=== PATIENT | female | born 1990 | race Caucasian/White ===

== ENCOUNTER 2017-02-20 04:41 | Inpatient (IN) | payer OTHER ==
[~2017-02-20] VITALS: Ht 165.1 cm; Wt 79.0 kg
[2017-02-20] VITALS (46 sets, daily range): BP systolic 75–192; BP diastolic 44–136
[2017-02-20] MEDS ORDERED: LACTATED RINGER'S 1000 ML IV STA (05:30)
[2017-02-20] MEDS ORDERED: PENICILLIN G POTASSIUM IV 5 MU in D5W MINI-BAG PLUS 100 ML IV STA (05:30)
[2017-02-20] MEDS ORDERED: FENTANYL 2MCG/ML ROPIVACAINE 0.2% IN 0.9% NACL 200ML IVBAG As Ordered ONE (05:51)
[2017-02-20 05:52] LABS: MEAN CORPUSCULAR HEMOGLOBIN 30.4 pg (27.0-33.0); MEAN CORPUSCULAR HGB CONC 33.6 g/dl (32.0-36.5); MEAN CORPUSCULAR VOLUME 90.4 fl (80.0-96.0); PLATELET COUNT, AUTOMATED 255 10^3/uL (150-450); RED CELL DISTRIBUTION WIDTH 12.2 % (11.5-14.5); WHITE BLOOD COUNT 8.8 10^3/uL (4.0-10.0)
[2017-02-20] MEDS ORDERED: RANI15TA PO (06:46)
[2017-02-20] MEDS ORDERED: BIOT50004 PO (06:48)
[2017-02-20] MEDS ORDERED: PRENTAB16 PO (06:49)
[2017-02-20] MEDS ORDERED: REFRIGERATOR IV KEYS XX PRN (07:00)
[2017-02-20] MEDS ORDERED: ONDANSETRON 4MG/2ML VIAL (J2405) IV PRN (07:00)
[2017-02-20] MEDS ORDERED: ePHEDrine SULFATE 25 MG/5 ML(5MG/ML) SYRINGE IV PRN (07:00)
[2017-02-20] MEDS ORDERED: NALOXONE INJ 0.4 MG/1 ML VIAL (J2310) IV PRN (07:00)
[2017-02-20] MEDS ORDERED: LACTATED RINGER'S 1000 ML IV PRN (07:00)
[2017-02-20] MEDS ORDERED: EPIDURAL COMMENT XX SCH (07:00)
[2017-02-20] MEDS ORDERED: EPIDURAL/PCA KEYS XX PRN (07:00)
[2017-02-20] MEDS: FENTANYL/ROPIVACAINE/NACL BAG 200 ML EPIDURAL SCH (07:00)
[2017-02-20] MEDS ORDERED: diphenhydrAMINE INJ 50MG/ML VIAL (J1200) IV PRN (07:00)
[2017-02-20] MEDS: PENICILLIN G POTASSIUM IV 2.5 MU in D5W 100 ML IV SCH ×4 (10:07→23:02)
[2017-02-20] MEDS ORDERED: OXYTOCIN DRIP 30 UNITS in APPROPRIATE DILUENT 1 EA IV SCH (11:30)
[2017-02-20] MEDS ORDERED: LACTATED RINGER'S 1000 ML IV ONE ×2 (12:00→18:15)
[2017-02-20] MEDS ORDERED: FAMOTIDINE INJ 20MG/2ML VIAL (S0028) IVP ONE (12:00)
[2017-02-20] MEDS: LR 1,000 ML IV SCH ×2 (12:06→16:03)
--- NOTE | 2017-02-20 19:53 | IPNPDOC ---
Text Note Date of Service The patient was seen on 02/20/17. NOTE I assumed care as primary provider at 1930. Lucero is a 26yo with SIUP at 41wk who presented in active labor this morning. She has progressed from 4cm on admission to 7cm on most recent check at 1830. She is starting to have more pain in her back, anesthesia aware and will re- bolus epidural. Vitals wnl Cat I FHRT currently Continue to titrate pitocin per protocol as FHRT allows Plan to recheck in 1hr or as indicated Safe to proceed Dr. Jessica Bacon ([facility])MD VS,Mynor, I+O VS, Mynor I+O Laboratory Tests 02/20/17 05:39 Red Blood Count 4.28, Mean Corpuscular Volume 90.4, Mean Corpuscular Hemoglobin 30.4, Mean Corpuscular Hemoglobin Concent 33.6, Red Cell Distribution Width 12.2 Vital Signs Date Time Temp Pulse Resp B/P (MAP) Pulse Ox O2 Delivery O2 Flow Rate FiO2 02/20/17 19:00 93 118/82 (94) 02/20/17 16:56 99.0 18 I&O- Last 24 Hours up to 6 AM 02/21/17 06:00 Intake Total 3282.5 ml Output Total 2375 ml Balance 907.5 ml JESSICA BACON MD Feb 20, 2017 19:53
--- NOTE | 2017-02-20 20:38 | IPNPDOC ---
Text Note Date of Service The patient was seen on 02/20/17. NOTE Pt now more comfortable after recent epidural bolus. Vitals wnl, afebrile Cat I FHRT currently with ctx q2-3min My first SCE: /-1 IUPC placed, amniotic fluid still clear Continue to titrate pitocin per protocol as FHRT allows Plan to recheck in 2-4hr or as indicated Use of "peanut ball" with frequent repositioning of pt Safe to proceed Dr. Jessica Bacon ([facility]), VS,Mynor, I+O VSMynor I+O Laboratory Tests 02/20/17 05:39 Red Blood Count 4.28, Mean Corpuscular Volume 90.4, Mean Corpuscular Hemoglobin 30.4, Mean Corpuscular Hemoglobin Concent 33.6, Red Cell Distribution Width 12.2 Vital Signs Date Time Temp Pulse Resp B/P (MAP) Pulse Ox O2 Delivery O2 Flow Rate FiO2 02/20/17 19:00 93 118/82 (94) 02/20/17 16:56 99.0 18 I&O- Last 24 Hours up to 6 AM 02/21/17 06:00 Intake Total 3282.5 ml Output Total 2375 ml Balance 907.5 ml JESSICA BACON MD Feb 20, 2017 20:38
[2017-02-21] MEDS: PENICILLIN G POTASSIUM IV 2.5 MU in D5W 100 ML IV SCH (02:00)
[2017-02-21] MEDS: FENTANYL/ROPIVACAINE/NACL BAG 200 ML EPIDURAL SCH (03:00)
[2017-02-21] MEDS ORDERED: OXYTOCIN DRIP 30 UNITS in APPROPRIATE DILUENT 1 EA IV SCH (03:15)
[2017-02-21] MEDS ORDERED: LIDOCAINE 1% MDV INJ 50 ML VIAL INFIL ONE (03:15)
[2017-02-21] MEDS ORDERED: MEASLES,MUMPS,RUBELLA VACCINE INJ (MMR-II) (90707) SC SCH (03:15)
[2017-02-21] MEDS ORDERED: DIBUCAINE 1% OINTMENT 30GM TOP PRN (03:15)
[2017-02-21] MEDS ORDERED: RHOGAM 300 MCG (1500 IU) INJ (J2790) IM SCH (03:15)
--- NOTE | 2017-02-21 03:23 | DNPDOC ---
[facility] Delivery Note Delivery Note DATE OF DELIVERY: 21 February 2017 PREDELIVERY DIAGNOSIS: 41w1d gestation and labor. POST DELIVERY DIAGNOSIS: Delivered. PROCEDURE: Spontaneous vaginal delivery COMPLIANCE ADVISOR[facility] ANESTHESIA: epidural, lidocaine ESTIMATED BLOOD LOSS: 250 mL. FINDINGS: 6 pound 13 ounce female infant, Score 8/9 DELIVERY SUMMARY: Lucero is a 26yo [id number] s/p uncomplicated at 0245 on 21 February 2017 after presenting in active labor at 41wk. She had normal labor progress and received an epidural. She began pushing at C/C/+1. Good pushing efforts, head delivered OA, restituted MARKIE. Right anterior shoulder delivered without difficulty followed by left posterior shoulder and corpus. Spontaneous cry, infant vigorous and placed on maternal chest. nose and mouth suctioned ( meconium noted during pushing). Umbilical cord clamped twice after 1 minute and cut by father of baby. Placenta delivered spontaneously with uterine massage, was intact with 3 vessel cord. Uterine massage and pitocin IV given to decrease bleeding and fundus noted to be firm at U. Inspection of perineum revealed superficial 1mll repaired in usual fashion with 3-0 vicryl after lidocaine injected for anesthesia. Total hemostasis noted. Mom and in good condition. Apgars 8/9, weight 3050g or 6#13oz. JESSICA BACON MD Feb 21, 2017 03:23
[2017-02-21] MEDS: LR 1,000 ML IV SCH ×2 (03:30→11:30)
[2017-02-21 04:50] VITALS: BP 113/64
[2017-02-21] MEDS: IBUPROFEN 800 MG TAB PO PRN ×2 (05:09→16:20)
[2017-02-21 08:30] VITALS: BP 113/81
[2017-02-21] MEDS: PRENATAL VITAMINS CHEWABLE TABLET PO SCH (09:36)
[2017-02-21] MEDS: DOCUSATE SODIUM 100 MG CAP PO SCH ×2 (09:36→20:43)
[2017-02-21] MEDS: ACETAMINOPHEN 500 MG TAB PO PRN ×2 (09:38→17:52)
[2017-02-21 18:16] VITALS: BP 118/78
[2017-02-22] MEDS: IBUPROFEN 800 MG TAB PO PRN ×2 (02:00→14:49)
[2017-02-22 05:53] VITALS: BP 138/85
[2017-02-22] MEDS: PRENATAL VITAMINS CHEWABLE TABLET PO SCH (08:19)
[2017-02-22] MEDS: DOCUSATE SODIUM 100 MG CAP PO SCH ×2 (08:20→21:27)
[2017-02-22] MEDS: ACETAMINOPHEN 500 MG TAB PO PRN ×2 (08:20→19:51)
--- NOTE | 2017-02-22 09:18 | IPN ---
DATE: 02/22/2017 day #1. A 26-year-old 1, now para 1, admitted in spontaneous labor at 41 weeks of gestation, spontaneous vaginal delivery, female, 6 pounds 13 ounces, 3050 grams, scores of 8 and 9 at one and five minutes respectively. Admitting hemoglobin 13.0, hematocrit 38.7, platelets are 255. Vital Signs: Blood pressure today 138/85, respirations 16, pulse 85, temperature is 98.0. We discussed phlebitis, cystitis, mastitis, endometritis and cellulitis, diet, exercise, pain management, perineal, breast and wound care. The patient is planning on discharging when baby is discharged, to follow up the office in 6 weeks time. She was Group B Streptococcus (GBS) positive, treated appropriately, and she is anxious to be discharged. The patient is voiding, passing gas, had a bowel movement and is successfully breast-feeding. Edited 02/22/2017 [facility]
[2017-02-22 18:12] VITALS: BP 110/70
[2017-02-23 06:00] VITALS: BP 129/82
--- NOTE | 2017-02-23 08:53 | DSES ---
DATE OF ADMISSION: 02/20/2017 DATE OF DISCHARGE: 02/23/2017 This lady is a 26-year-old 1 now para 1 admitted at 41 weeks of gestation in active labor, had a spontaneous vaginal delivery female 6 pounds 13 ounces, 3050 grams, of 8 and 9 at one and five minutes respectfully. She had local infiltration for repair of a labial issue and also had an epidural. She is GBS positive treated prophylactically. Her hemoglobin is 13.0, hematocrit 38.7, platelets are 255. Her vital signs on discharge: Blood pressure 129/82, respirations 18, pulse 75, temperature 98.2. We discussed phlebitis, cystitis, mastitis, endometritis and cellulitis, diet, exercise, pain management, perineal , breast and wound care. She is planning on discussing oral contraceptives Dr. Rizvi at her 6-week checkup. The patient was dispensed medications for discharge. In summary, we have a term gestation, delivered a live female infant, discharged improved. WAN
[2017-02-23] MEDS ORDERED: IBUP-1114 PO (09:02)
[2017-02-23] MEDS ORDERED: COLA100C5 PO (09:02)
[2017-02-23] MEDS ORDERED: ACET50TA PO (09:02)
[2017-02-23] MEDS ORDERED: DIBU10OI TOP (09:04)
[2017-02-23] MEDS: PRENATAL VITAMINS CHEWABLE TABLET PO SCH (09:22)
[2017-02-23] MEDS: DOCUSATE SODIUM 100 MG CAP PO SCH (09:22)
== END 2017-02-23 10:35 | disposition home or self-care (01) | DRG 775 ==
LOC: M LDI 04:41 → EDBD 04:41 → M OBS 02-21 04:50
PROVIDERS: ADMIT Obstetrics & Gynecology; ATTEND Obstetrics & Gynecology
PROC: 10907ZC Drainage of Amniotic Fluid, Therapeutic from Products of Conception, Via Natural or Artificial Opening (ICD-10-PCS; 2017-02-20)
PROC: 10E0XZZ Delivery of Products of Conception, External Approach (ICD-10-PCS; principal; 2017-02-21)
PROC: 0HQ9XZZ Repair Perineum Skin, External Approach (ICD-10-PCS; 2017-02-21)
DX: O48.0 Post-term pregnancy (principal); O99.824 Streptococcus B carrier state complicating childbirth; Z3A.41 41 weeks gestation of pregnancy; O32.2XX0 Maternal care for transverse and oblique lie, not applicable or unspecified; O70.0 First degree perineal laceration during delivery; Z37.0 Single live birth

== ENCOUNTER 2018-01-29 01:48 | Emergency (ER) | payer OTHER ==
[2018-01-29 03:05] LABS: APPEARANCE, URINE CLEAR (CLEAR); BACTERIA, URINE AUTO NEGATIVE (NEGATIVE); BILIRUBIN, URINE AUTO NEGATIVE (NEGATIVE); BLOOD, URINE BLOOD NEGATIVE (NEGATIVE); COLOR, URINE YELLOW (YELLOW); GLUCOSE, URINE (UA) AUTO NEGATIVE (NEGATIVE); KETONE, URINE AUTO TRACE mg/dL (NEGATIVE); LEUKOCYTE ESTERASE, URINE AUTO TRACE (NEGATIVE); MUCUS, URINE SMALL (NEGATIVE); NITRITE, URINE AUTO NEGATIVE (NEGATIVE); PROTEIN, URINE AUTO NEGATIVE (NEGATIVE); RBC, URINE AUTO 2 /HPF (0-3); SPECIFIC GRAVITY URINE AUTO 1.023 (1.002-1.035); SQUAMOUS EPITHELIAL CELL UR AU 1 /HPF (0-6); UROBILINOGEN, URINE AUTO 0.2 mg/dL (0.0-2.0); WBC, URINE AUTO 1 /HPF (0-3)
[2018-01-29 03:13] LABS: BASO % 0.2 % (0.0-1.0); HEMATOCRIT 38.1 % (36.0-47.0); HEMOGLOBIN 12.5 g/dl (12.0-15.5); IMMATURE GRANULOCYTE % 0.2 % (0-3.0); LYMPH # 0.9 10^3/uL (1.5-6.5); MEAN CORPUSCULAR HEMOGLOBIN 27.8 pg (27.0-33.0); MEAN CORPUSCULAR HGB CONC 32.8 g/dl (32.0-36.5); MEAN CORPUSCULAR VOLUME 84.7 fl (80.0-96.0); MONO # 0.6 10^3/uL (0.0-0.8); MONO % 4.2 % (0.0-5.0); NEUTROPHILS # 11.7 10^3/uL (1.8-7.7); NEUTROPHILS % 88.4 % (36.0-66.0); PLATELET COUNT, AUTOMATED 283 10^3/uL (150-450); RED CELL DISTRIBUTION WIDTH 13.2 % (11.5-14.5); WHITE BLOOD COUNT 13.2 10^3/uL (4.0-10.0)
[2018-01-29] MEDS ORDERED: MORPHINE 10 MG/ML 1ML VIAL (J2270) IM (03:15)
[2018-01-29 03:25] LABS: CONTROL LINE HCG INT CTR LINE PRESENT; HCG, SERUM QUALITATIVE NEGATIVE (NEGATIVE)
[2018-01-29] MEDS: ONDANSETRON 4MG/2ML VIAL (J2405) IV (03:30)
[2018-01-29] MEDS: MORPHINE 4 MG/ML 1ML VIAL/SYRINGE (J2270) IV ×2 (03:30→03:45)
[2018-01-29 03:34] LABS: ALBUMIN 3.9 GM/DL (3.2-5.2); ALBUMIN/GLOBULIN RATIO 1.34 (1.00-1.93); ALKALINE PHOSPHATASE 79 U/L (45-117); ALT/SGPT 23 U/L (12-78); ANION GAP 11 MEQ/L (8-16); AST/SGOT 14 U/L (7-37); BILIRUBIN,DIRECT 0.1 MG/DL (0.0-0.2); BILIRUBIN,TOTAL 0.4 MG/DL (0.2-1.0); BLOOD UREA NITROGEN 17 MG/DL (7-18); CALCIUM LEVEL 8.8 MG/DL (8.5-10.1); CARBON DIOXIDE LEVEL 24 MEQ/L (21-32); CHLORIDE LEVEL 106 MEQ/L (98-107); CREATININE FOR GFR 0.77 MG/DL (0.55-1.30); GLOMERULAR FILTRATION RATE > 60.0 (>60); GLUCOSE, FASTING 103 MG/DL (70-100); LIPASE 162 U/L (73-393); POTASSIUM SERUM 4.1 MEQ/L (3.5-5.1); SODIUM LEVEL 141 MEQ/L (136-145); TOTAL PROTEIN 6.8 GM/DL (6.4-8.2)
[2018-01-29 06:02] LABS: CHLAMYDIA DNA AMPLIFICATION NEGATIVE (NEGATIVE); GC DNA AMPLIFICATION NEGATIVE (NEGATIVE)
[2018-01-29] MEDS: NORCO 5/325MG TABLET (BULK FOR ED) PO (06:40)
== END 2018-01-29 06:53 | disposition home or self-care (01) ==
LOC: M ED 01:48
DX: N83.202 Unspecified ovarian cyst, left side (principal)
CPT/HCPCS: J2270

== ENCOUNTER 2018-03-09 19:39 | Emergency (ER) | payer OTHER ==
[2018-03-09] MEDS: PERCOCET 5MG/325MG TAB PO (20:26)
[2018-03-09] MEDS: OXYCODONE/APAP 5MG/325MG(BULK FOR ED) 1 TABLET PO (22:08)
== END 2018-03-09 22:09 | disposition home or self-care (01) ==
LOC: M ED 19:39
DX: N83.202 Unspecified ovarian cyst, left side (principal); Z87.42 Personal history of other diseases of the female genital tract; Z79.899 Other long term (current) drug therapy
CPT/HCPCS: 76856

== ENCOUNTER 2019-06-03 12:31 | Emergency (ER) | payer OTHER ==
[~2019-06-03] VITALS: Ht 165.1 cm; Wt 67.4 kg
[~2019-06-03 12:31] MED LIST: BIOT50004 PO; COLA100C5 PO; DIBU10OI TOP; IBUP-1114 PO; MAPA500T2 PO; PERC5TAB12 PO; PRENTAB16 PO; RANI15TA PO
[2019-06-03 12:32] VITALS: BP 121/61
--- NOTE | 2019-06-03 13:18 | REPVR ---
PROCEDURE INFORMATION: Exam: CT Head Without Contrast Exam date and time: 06/03/2019 12:36 PM Age: 29 years old Clinical indication: Injury or trauma; Injury history: Hit head on trunk; Initial encounter; Blunt trauma (contusions or hematomas); Additional info: Head injury Thursday h/a TECHNIQUE: Imaging protocol: Computed tomography of the head without contrast. Radiation optimization: All CT scans at this facility use at least one of these dose optimization techniques: automated exposure control; mA and/or kV adjustment per patient size (includes targeted exams where dose is matched to clinical indication); or iterative reconstruction. COMPARISON: No relevant prior studies available. FINDINGS: Brain: No acute intracranial abnormality seen. Ventricles: No significant ventriculomegaly. Bones/joints: Unremarkable. No acute fracture. Sinuses: Moderate mucosal thickening in the right maxillary sinus. Prior endoscopic sinus surgery. Mastoid air cells: Visualized mastoid air cells are well aerated. Soft tissues: Unremarkable. IMPRESSION: No acute intracranial abnormality seen. Electronically signed by: Wanda Sol On 06/03/2019 13:18:57 PM
--- NOTE | 2019-06-03 13:23 | REPVR ---
PROCEDURE INFORMATION: Exam: CT Cervical Spine Without Contrast Exam date and time: 06/03/2019 12:36 PM Age: 29 years old Clinical indication: Injury or trauma; Injury history: Hit head on trunk; Initial encounter; Blunt trauma; Additional info: Head injury Thursday persistent h/a TECHNIQUE: Imaging protocol: Computed tomography images of the cervical spine without contrast. Radiation optimization: All CT scans at this facility use at least one of these dose optimization techniques: automated exposure control; mA and/or kV adjustment per patient size (includes targeted exams where dose is matched to clinical indication); or iterative reconstruction. COMPARISON: No relevant prior studies available. FINDINGS: Vertebrae: Trace levoconvex scoliosis, potentially related to supplying positioning. No acute fracture seen. Minimal endplate spondylotic ridging. No significant disc height loss. No high-grade stenoses. Discs/Spinal canal/Neural foramina: See Vertebrae Finding. Soft tissues: Unremarkable. Lungs: Lung apices are normal. IMPRESSION: No cervical spine fracture seen. Electronically signed by: Wanda Sol On 06/03/2019 13:24:13 PM
[2019-06-03] MEDS ORDERED: KETO10TAB PO (13:38)
== END 2019-06-03 13:49 | disposition home or self-care (01) ==
LOC: M ED 12:31
DX: S06.0X0A Concussion without loss of consciousness, initial encounter (principal); W22.8XXA Striking against or struck by other objects, initial encounter; Y92.89 Other specified places as the place of occurrence of the external cause

== ENCOUNTER 2019-10-01 17:08 | Emergency (ER) | payer OTHER ==
[~2019-10-01] VITALS: Ht 165.1 cm; Wt 67.0 kg
[~2019-10-01 17:08] MED LIST changes: +KETO10TAB PO
[2019-10-01 18:15] LABS: BASO % 0.8 % (0.0-1.0); EOS # 0.1 10^3/uL (0.0-0.5); EOS % 1.7 % (0.0-3.0); HEMATOCRIT 40.6 % (36.0-47.0); HEMOGLOBIN 13.1 g/dl (12.0-15.5); LYMPH # 1.8 10^3/uL (1.5-5.0); LYMPH % 33.6 % (24.0-44.0); MEAN CORPUSCULAR HEMOGLOBIN 27.2 pg (27.0-33.0); MEAN CORPUSCULAR HGB CONC 32.3 g/dl (32.0-36.5); MEAN CORPUSCULAR VOLUME 84.4 fl (80.0-96.0); MONO # 0.4 10^3/uL (0.0-0.8); MONO % 8.1 % (0.0-5.0); NEUTROPHILS % 55.6 % (36.0-66.0); PLATELET COUNT, AUTOMATED 294 10^3/uL (150-450); RED BLOOD COUNT 4.81 10^6/uL (4.00-5.40); WHITE BLOOD COUNT 5.3 10^3/uL (4.0-10.0)
[2019-10-01 18:21] LABS: ALBUMIN 3.8 GM/DL (3.2-5.2); BILIRUBIN,DIRECT 0.1 MG/DL (0.0-0.2); BILIRUBIN,TOTAL 0.4 MG/DL (0.2-1.0); TOTAL PROTEIN 7.6 GM/DL (6.4-8.2)
--- NOTE | 2019-10-01 19:16 | REPVR ---
PROCEDURE INFORMATION: Exam: US Duplex Artery and Vein of the Abdominal and/or Reproductive Organs. Complete Ovaries Exam date and time: 10/01/2019 6:23 PM Age: 29 years old Clinical indication: Pelvic pain; Additional info: Lower abd pain HX of ovarian cysts TECHNIQUE: Imaging protocol: Real-time duplex ultrasound scan of the arterial and venous flow with color Doppler flow and spectral waveform analysis with image documentation. Complete duplex exam focused on the ovaries. Duplex exam was added to evaluate for torsion and other vascular conditions. COMPARISON: US PELVIC NON-OB COMPLETE 03/09/2018 8:37 PM FINDINGS: Right adnexa: Transabdominally, the right ovary is not seen as a separate structure. Endovaginally, the right ovary measures 2.7 by 3.5 x 2.1 centimetres. Arterial and venous blood flow demonstrated in the right ovary on color Doppler and pulse Doppler examination. Left adnexa: Transabdominally the left ovary is not seen as a separate structure. Endovaginally, the left ovary measures 5.3 x 5.2 x 4.1 cm. Multiple subcentimeter follicles are present. A complex follicle is noted measuring 2.7 x 4.1 x 2.3 cm. Arterial and venous blood flow demonstrated in the left ovary on color Doppler and pulse Doppler examination. IMPRESSION: Normal ovarian arterial and venous vascular flow. No evidence ovarian torsion. PROCEDURE INFORMATION: Exam: US Pelvis Limited, Transabdominal and US Pelvis, Transvaginal Exam date and time: 10/01/2019 6:23 PM Age: 29 years old Clinical indication: Pelvic pain; Additional info: Lower abd pain HX of ovarian cysts TECHNIQUE: Imaging protocol: Real-time transabdominal and transvaginal pelvic ultrasound (limited) with image documentation. Transvaginal imaging was used for better evaluation of the endometrium and adnexa. COMPARISON: US PELVIC NON-OB COMPLETE 03/09/2018 8:37 PM FINDINGS: Uterus/cervix: Transvaginally, the endometrial stripe measures 1.4 cm in thickness and is somewhat heterogeneous in appearance. Two small sub endometrial cysts each measuring approximately 2 mm are noted. Right adnexa: Transabdominally, the right ovary is not seen as a separate structure. Endovaginally, the right ovary measures 2.7 by 3.5 x 2.1 centimetres. Arterial and venous blood flow demonstrated in the right ovary on color Doppler and pulse Doppler examination. Left adnexa: Transabdominally the left ovary is not seen as a separate structure. Endovaginally, the left ovary measures 5.3 x 5.2 x 4.1 cm. Multiple subcentimeter follicles are present. A complex septated follicle with multiple internal echoes is noted measuring 2.7 x 4.1 x 2.3 cm and is avascular on color Doppler examination.. Arterial and venous blood flow demonstrated in the left ovary on color Doppler and pulse Doppler examination. Free fluid: Small amount of free fluid noted posterior to the uterine fundus. Bladder: Transabdominally, there is poor distention of the bladder which limits visualization of the uterus and the adnexa. IMPRESSION: 1. Complex follicular cyst in the left ovary. The appearance suggests hemorrhagic corpus luteum cyst. 2. No evidence of ovarian torsion bilaterally. 3. Subendometrial cysts. This can be seen in adenomyosis. Electronically signed by: Mariah Oviedo On 10/01/2019 19:16:01 PM
[2019-10-01 19:33] VITALS: BP 128/75
== END 2019-10-01 20:04 | disposition home or self-care (01) ==
LOC: M ED 17:08
DX: N83.202 Unspecified ovarian cyst, left side (principal)